=== PATIENT | male | born 1970 | race Caucasian/White ===

== ENCOUNTER 2018-12-20 02:11 | Emergency (ER) | payer BC ==
[2018-12-20 02:14] VITALS: BP 118/85; PULSE 83
[2018-12-20] MEDS ORDERED: Ondansetron 4 MG/2 ML SDV IVPUSH ONE (02:24)
[2018-12-20] MEDS ORDERED: LORazepam 2 MG/ML SDV IVPUSH ONE (02:25)
[2018-12-20] MEDS ORDERED: HYDROmorphone 1 MG/ML Syringe IVPUSH ONE (02:25)
--- NOTE | 2018-12-20 02:30 | EDM.PDOC ---
ED HPI GENERAL MEDICAL PROBLEM - General Chief Complaint: Chest Pain Stated Complaint: CHEST PAIN Time Seen by Provider: 12/20/18 02:23 Source of Information: Reports: Patient, Family History Limitations: Reports: No Limitations - History of Present Illness INITIAL COMMENTS - FREE TEXT/NARRATIVE: This is a 47-year-old male. Around 11 AM awoke because his shoulders and his back was hurting. He just couldn't get comfortable in bed so when he got up he took a drink of water laid back down and every 15-20 minutes after that he got up and got her drink because he wasn't comfortable and in his chest began to hurt him right in the center of his chest. This seemed to get worse with shortness of breath and tightness and pressure and nausea but no vomiting. With his shortness of breath there was no diaphoresis. He does have a strong history of cardiac problems but he is never had a cardiac problem that they are aware of. He does take medications for cholesterol and hypertension. He takes Cialis on a regular basis every morning. He states when he standing and walking he feels better when he lies down he seems to get worse. He comes to the ER for evaluation. There is no radiation of his pain down his left arm or into his neck or his jaw. Chest Pain Score (Numeric/FACES): 10 - Related Data Allergies Allergy/AdvReac Type Severity Reaction Status Date / Time No Known Allergies Allergy Verified 12/20/18 02:14 Home Meds: Home Meds Amlodipine. 1 tab PO DAILY 07/19/13 [History] Cialis. 1 tab PO DAILY PRN 07/19/13 [History] Lisinopril. 1 tab PO DAILY 07/19/13 [History] Past Medical History Cardiovascular History: Reports: Hypertension - Past Surgical History HEENT Surgical History: Reports: LASIK, Naso-Sinus Surgery, Tonsillectomy Social & Family History - Family History Family Medical History: Noncontributory - Caffeine Use Caffeine Use: Reports: Other ED ROS GENERAL - Review of Systems Review Of Systems: See Below Constitutional: Denies: Fever, Chills HEENT: Reports: No Symptoms Respiratory: Reports: Shortness of Breath. Denies: Cough Cardiovascular: Reports: Chest Pain. Denies: Edema Endocrine: Reports: No Symptoms GI/Abdominal: Reports: Nausea. Denies: Abdominal Pain, Vomiting : Reports: No Symptoms Musculoskeletal: Reports: No Symptoms Skin: Reports: No Symptoms Neurological: Reports: No Symptoms Psychiatric: Reports: Anxiety Hematologic/Lymphatic: Reports: No Symptoms ED EXAM, GENERAL - Physical Exam Exam: See Below Exam Limited By: No Limitations General Appearance: Alert, WD/WN, Anxious, Moderate Distress Eye Exam: Bilateral Eye: Normal Inspection Ears: Normal External Exam Nose: Normal Inspection Throat/Mouth: Normal Inspection, Normal Lips, Normal Voice, No Airway Compromise Head: Normocephalic Neck: Supple Respiratory/Chest: Lungs Clear, Normal Breath Sounds, Other (Increased respiratory rate, where he is complaining of the tightness and the pain is in the center and the upper chest area, it doesn't radiate into his arm or into his neck or jaw.) Cardiovascular: Regular Rate, Rhythm, No Murmur GI/Abdominal: Soft, Non-Tender Back Exam: Full Range of Motion Extremities: Other (He has chronic right shoulder soreness and discomfort) Neurological: Alert, Oriented Psychiatric: Anxious Skin Exam: Warm, Dry EKG INTERPRETATION EKG Date: 12/20/18 Time: 02:10 EKG Interpretation Comments: EKG shows a normal sinus rhythm but the artifact from the baseline gives the interpretation of atrial fibrillation which is incorrect, he does not show any acute ST or T-wave changes and there is no ischemia noted. 2nd EKG after the patient had calmed down does not show any baseline artifact and he is in a normal sinus rhythm rate of [address] or T-wave changes and no ischemia noted. Does have possibly some left atrial enlargement. Course - Vital Signs Last Recorded V/S: Last Vital Signs Temp 96.6 F 12/20/18 02:13 Pulse 83 12/20/18 02:13 Resp 20 12/20/18 02:13 BP 118/85 12/20/18 02:13 Pulse Ox 96 12/20/18 02:13 - Orders/Labs/Meds Orders: Active Orders 24 hr Category Date Time Status EKG 12 Lead [EKG Documentation Completion] [RC] STAT Care 12/20/18 02:23 Active CXR [Chest 1V Frontal] [CR] Stat Exams 12/20/18 02:24 Taken Labs: Laboratory Tests 12/20/18 12/20/18 12/20/18 Range/Units 02:25 02:25 02:25 WBC 10.28 H (4.23-9.07) K/mm3 RBC 5.61 (4.63-6.08) M/mm3 Hgb 16.5 (13.7-17.5) gm/dl Hct 48.7 (40.1-51.0) % MCV 86.8 (79.0-92.2) fl MCH 29.4 (25.7-32.2) pg MCHC 33.9 (32.2-35.5) g/dl RDW Std Deviation 40.8 (35.1-43.9) fL Plt Count 286 (163-337) K/mm3 MPV 10.3 (9.4-12.3) fl Neut % (Auto) 62.4 (34.0-67.9) % Lymph % (Auto) 19.8 L (21.8-53.1) % Liberty % (Auto) 12.6 H (5.3-12.2) % Eos % (Auto) 4.2 (0.8-7.0) Baso % (Auto) 0.6 (0.1-1.2) % Neut # (Auto) 6.41 H (1.78-5.38) K/mm3 Lymph # (Auto) 2.04 (1.32-3.57) K/mm3 Liberty # (Auto) 1.30 H (0.30-0.82) K/mm3 Eos # (Auto) 0.43 (0.04-0.54) K/mm3 Baso # (Auto) 0.06 (0.01-0.08) K/mm3 D-Dimer, Quantitative < 0.19 L (0.19-0.50) mg/L Sodium 137 (136-145) mEq/L Potassium 4.5 (3.5-5.1) mEq/L Chloride 102 (98-107) mEq/L Carbon Dioxide 27 (21-32) mEq/L Anion Gap 12.5 (5-15) BUN 14 (7-18) mg/dL Creatinine 1.3 (0.7-1.3) mg/dL Est Cr Clr Drug Dosing 74.01 mL/min Estimated GFR (MDRD) 59 (>60) mL/min BUN/Creatinine Ratio 10.8 L (14-18) Glucose 166 H (74-106) mg/dL Calcium 8.8 (8.5-10.1) mg/dL Total Bilirubin 0.3 (0.2-1.0) mg/dL AST 20 (15-37) U/L ALT 49 (16-63) U/L Alkaline Phosphatase 49 (46-116) U/L Troponin I < 0.017 (0.00-0.056) ng/mL C-Reactive Protein < 0.2 (<1.0) mg/dL Total Protein 7.0 (6.4-8.2) g/dl Albumin 4.0 (3.4-5.0) g/dl Globulin 3.0 gm/dL Albumin/Globulin Ratio 1.3 (1-2) 12/20/18 Range/Units 04:38 WBC (4.23-9.07) K/mm3 RBC (4.63-6.08) M/mm3 Hgb (13.7-17.5) gm/dl Hct (40.1-51.0) % MCV (79.0-92.2) fl MCH (25.7-32.2) pg MCHC (32.2-35.5) g/dl RDW Std Deviation (35.1-43.9) fL Plt Count (163-337) K/mm3 MPV (9.4-12.3) fl Neut % (Auto) (34.0-67.9) % Lymph % (Auto) (21.8-53.1) % Liberty % (Auto) (5.3-12.2) % Eos % (Auto) (0.8-7.0) Baso % (Auto) (0.1-1.2) % Neut # (Auto) (1.78-5.38) K/mm3 Lymph # (Auto) (1.32-3.57) K/mm3 Liberty # (Auto) (0.30-0.82) K/mm3 Eos # (Auto) (0.04-0.54) K/mm3 Baso # (Auto) (0.01-0.08) K/mm3 D-Dimer, Quantitative (0.19-0.50) mg/L Sodium (136-145) mEq/L Potassium (3.5-5.1) mEq/L Chloride (98-107) mEq/L Carbon Dioxide (21-32) mEq/L Anion Gap (5-15) BUN (7-18) mg/dL Creatinine (0.7-1.3) mg/dL Est Cr Clr Drug Dosing mL/min Estimated GFR (MDRD) (>60) mL/min BUN/Creatinine Ratio (14-18) Glucose (74-106) mg/dL Calcium (8.5-10.1) mg/dL Total Bilirubin (0.2-1.0) mg/dL AST (15-37) U/L ALT (16-63) U/L Alkaline Phosphatase (46-116) U/L Troponin I < 0.017 (0.00-0.056) ng/mL C-Reactive Protein (<1.0) mg/dL Total Protein (6.4-8.2) g/dl Albumin (3.4-5.0) g/dl Globulin gm/dL Albumin/Globulin Ratio (1-2) Meds: Medications Discontinued Medications Generic Name Dose Route Start Last Admin Trade Name Freq PRN Reason Stop Dose Admin Hydromorphone HCl 1 mg 12/20/18 02:25 12/20/18 02:32 Dilaudid IVPUSH 12/20/18 02:26 1 mg ONETIME ONE Administration Lorazepam 0.5 mg 12/20/18 02:25 12/20/18 02:32 Ativan IVPUSH 12/20/18 02:26 0.5 mg ONETIME ONE Administration Ondansetron HCl 4 mg 12/20/18 02:24 12/20/18 02:32 Zofran IVPUSH 12/20/18 02:25 4 mg ONETIME ONE Administration - Radiology Interpretation Free Text/Narrative:: Single view chest x-ray does not suggest a wide mediastinum and the aortic knob appears to be small without obvious calcification. The heart itself he has a very poor inspiratory effort so I cannot tell whether the heart appears to be large or not. - Re-Assessments/Exams Free Text/Narrative Re-Assessment/Exam: 12/20/18 05:36 The patient is awake and he states he is doing fine. I went over the lab work and the 2 negative troponins. I do not believe that the pain he was having is related to his heart think he was having esophageal reflux from drinking the water every time he got up and then he would lie down flat and it would reflux into his esophagus causing esophageal spasm. I encouraged him to take some Prilosec for the next few days to make sure this doesn't happen and asleep at a slant for the next couple nights to make sure he does not have this recur. Departure - Departure Time of Disposition: 05:37 Disposition: Home, Self-Care 01 Condition: Good Clinical Impression: Chest pain, atypical, Esophageal spasm Gastroesophageal reflux disease Qualifiers: Esophagitis presence: without esophagitis Qualified Code(s): K21.9 - Gastro- esophageal reflux disease without esophagitis Instructions: Esophageal Spasm Referrals: PCP,Unknown [Primary Care Provider] - Forms: ED Department Discharge Additional Instructions: Don't drink fluids before you go to sleep or lie down since it might cause this to recur, try to sleep at a slight slant over the next couple of nights and take the Prilosec which will help with these symptoms. I would encourage you to follow up with your doctor since your family history has a lot of heart problems it would be a good idea to have a cardiac stress test to make sure that your heart is doing well, return to the ER as needed - My Orders Last 24 Hours: My Active Orders 12/20/18 02:23 EKG 12 Lead [EKG Documentation Completion] [RC] STAT 12/20/18 02:24 CXR [Chest 1V Frontal] [CR] Stat - Assessment/Plan Last 24 Hours: My Active Orders 12/20/18 02:23 EKG 12 Lead [EKG Documentation Completion] [RC] STAT 12/20/18 02:24 CXR [Chest 1V Frontal] [CR] Stat
--- NOTE | 2018-12-21 10:58 | CR ---
Chest: Portable view of the chest was obtained. Comparison: No prior chest x-ray. Heart size and mediastinum are within normal limits for portable technique. Lungs are clear with no acute parenchymal change. Bony structures are grossly intact. Impression: 1. Nothing acute is appreciated on portable chest x-ray. Diagnostic code #1
== END 2018-12-20 05:48 | disposition home or self-care (01) ==
LOC: JD.ED 02:11
DX: R07.89 Other chest pain (principal); K22.4 Dyskinesia of esophagus; K21.9 Gastro-esophageal reflux disease without esophagitis; I10 Essential (primary) hypertension; E78.5 Hyperlipidemia, unspecified; Z79.899 Other long term (current) drug therapy
CPT/HCPCS: 36415; 71045; 80053; 84484; 85025; 85379; 86140; 93005; 96374; 96375; 99285; J1170; J2060; J2405

== ENCOUNTER 2024-08-15 13:26 | Emergency (ER) | payer BC ==
[2024-08-15 14:38] LABS: BASOPHILS ABSOLUTE AUTO 0.1 K/mm3 (0.0-0.2); BASOPHILS PERCENT AUTO 0.8 % (0.0-1.0); EOSINOPHILS ABSOLUTE AUTO 0.2 K/mm3 (0.0-0.4); EOSINOPHILS PERCENT AUTO 3.2 % (0.0-6.0); HEMATOCRIT 53.3 % (42.0-52.0); HEMOGLOBIN 17.6 gm/dl (14.0-18.0); IMMATURE GRAN ABSOLUTE AUTO 0.02 K/mm3 (0.00-0.05); IMMATURE GRAN PERCENT AUTO 0.3 % (0.0-0.4); LYMPHOCYTES ABSOLUTE AUTO 1.5 K/mm3 (1.0-4.8); MEAN CORPUSCULAR HEMOGLOBIN 28.6 pg (28.0-32.0); MEAN CORPUSCULAR VOLUME 86.5 fl (83.0-99.0); MEAN PLATELET VOLUME 10.2 fl (9.4-12.4); MONOCYTES ABSOLUTE AUTO 0.9 K/mm3 (0.0-0.8); MONOCYTES PERCENT AUTO 14.5 % (0.0-8.0); NEUTROPHILS ABSOLUTE AUTO 3.8 K/mm3 (1.8-7.7); NEUTROPHILS PERCENT AUTO 58.2 % (41.0-71.0); PLATELET COUNT,PLT 292 K/mm3 (150-400); RED BLOOD CELL COUNT 6.16 M/mm3 (4.52-5.90); WHITE BLOOD CELL COUNT,WBC 6.48 K/mm3 (3.9-11.3)
[2024-08-15 15:02] LABS: A/G RATIO 1.1 (1-2); ANION GAP 11.3 (5-15); BILIRUBIN TOTAL 0.5 mg/dL (0.2-1.0); BUN/CREATININE RATIO 13.6 (14-18); CALCIUM 9.3 mg/dL (8.5-10.1); CREATININE 1.1 mg/dL (0.7-1.3); EST CRCL DRUG DOSING (CG) 81.77 mL/min; MAGNESIUM 1.9 mg/dL (1.8-2.4); POTASSIUM,K 4.3 mEq/L (3.5-5.1); PROTEIN TOTAL,TP 7.7 g/dl (6.4-8.2)
[2024-08-15 15:21] LABS: APPEARANCE,URINE CLEAR (Clear); BILIRUBIN,URINE NEGATIVE (Negative); COLOR,URINE YELLOW (Yellow); GLUCOSE,URINE NEGATIVE (Negative); KETONES,URINE NEGATIVE (Negative); LEUKOCYTE ESTERASE,URINE NEGATIVE (Negative); NITRITE,URINE NEGATIVE (Negative); OCCULT BLOOD,URINE NEGATIVE (Negative); PROTEIN,URINE NEGATIVE (Negative); UROBILINOGEN,URINE 0.2 (0.2-1.0)
[2024-08-15 17:41] VITALS: BP 154/98; PULSE 79
== END 2024-08-15 16:00 | disposition home or self-care (01) ==
LOC: JD.ED 13:26
DX: I10 Essential (primary) hypertension (principal); Z79.899 Other long term (current) drug therapy
CPT/HCPCS: 36415; 70450; 70450-26; 80053; 81003; 83735; 85025; 99285